=== PATIENT | male | born 1960 | race Caucasian/White ===

== ENCOUNTER 2016-09-15 10:28 | Emergency (ER) | payer SELFPAY ==
[~2016-09-15] VITALS: Ht 180.3 cm; Wt 100.0 kg
[2016-09-15 10:31] VITALS: BP 115/69; PULSE 91; RESP 15; TEMP 97.8; O2SAT 95
[2016-09-15 10:49] VITALS: O2SAT 96
--- NOTE | 2016-09-15 11:12 | PD ---
HPI Chief Complaint: Edema Time Seen by Provider: 11:12 Travel History International Travel<30 days: No Contact w/Intl Traveler<30days: No Traveled to known affect area: No History of Present Illness HPI 56-year-old male presents the emergency department with 2 day history of increasing right-sided leg discomfort and swelling from the hip down. 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 Patient denies any specific recent injury. Patient states he noticed some edema in the right lower leg starting approximately 2 months ago but didn't think much of it until 2 days ago and got considerably worse. Patient denies fever, chills, numbness, tingling, or weakness in the right lower leg. He denies back pain. His states his pain is mainly worse in the hip and thigh, but not so much below the knee. Patient states his pain is 3/10 while he is sitting, and at worst it was a 5/10 last evening. Patient states it seems to improve with NSAIDs and ambulation. Patient has no history of recent long areas of travel. He states no history of similar symptoms in the past. He has no known drug allergies. PFSH Past Medical History Medical History: Denies Significant Hx Influenza Vaccination: No Social History Alcohol Use: Yes (daily beers) Tobacco Use: Yes Substance Use: No Allergies-Medications (Allergen,Severity, Reaction): Coded Allergies: No Known Allergies (Unverified , 09/15/16) Reported Meds & Prescriptions Reported Meds & Active Scripts Active Tramadol (Tramadol HCl) 50 Mg Tab 50 Mg PO Q6H PRN Xarelto (Rivaroxaban) 20 Mg Tab 20 Mg PO DAILY Xarelto Starter Pack 15 & 20 mg (Rivaroxaban) 1 Tab Tab 1 Tab PO DIRECTED Review of Systems Except as stated in HPI: all other systems reviewed are Neg General / Constitutional: No: Fever Eyes: No: Visual changes HENT: No: Headaches Cardiovascular: No: Chest Pain or Discomfort Respiratory: No: Shortness of Breath Gastrointestinal: No: Abdominal Pain Genitourinary: No: Dysuria Musculoskeletal: No: Pain Skin: No Rash Neurologic: No: Weakness Psychiatric: No: Depression Endocrine: No: Polydipsia Hematologic/Lymphatic: No: Easy Bruising Physical Exam Narrative GENERAL: Patient appears in no acute distress. SKIN: Warm and dry. Patient has 2+ nonpitting edema in the right lower extremity from the foot up to the knee. The right thigh does not appear edematous, the patient complains of tenderness with palpation along the anterior thigh into the anterior lateral hip. There are no signs of cellulitis , or skin breakdown. Capillary refill is brisk in the right lower leg. Toes are warm. HEAD: Atraumatic. Normocephalic. EYES: Pupils equal and round. No scleral icterus. No injection or drainage. ENT: No nasal bleeding or discharge. Mucous membranes pink and moist. Pharynx is clear. Airway is patent. NECK: Trachea midline. No JVD. Supple and nontender. CARDIOVASCULAR: Regular rate and rhythm. No murmurs gallops or rubs. Patient does have pedal pulse via Doppler in the right foot. RESPIRATORY: No accessory muscle use. Clear to auscultation. Breath sounds equal bilaterally. GASTROINTESTINAL: Abdomen soft, non-tender, nondistended. Hepatic and splenic margins not palpable. MUSCULOSKELETAL: Extremities without clubbing, cyanosis, or edema. No obvious deformities. Patient has negative Homans sign on the right. No straight leg raise pain bilaterally. NEUROLOGICAL: Awake and alert. No obvious cranial nerve deficits. Motor grossly within normal limits. Five out of 5 muscle strength in the arms and legs. Normal speech. PSYCHIATRIC: Appropriate mood and affect; insight and judgment normal. Data Data Last Documented VS Vital Signs Date Time Temp Pulse Resp B/P Pulse Ox O2 Delivery O2 Flow Rate FiO2 09/15/16 12:43 18 99 Room Air 09/15/16 10:31 97.8 91 115/69 Orders Complete Blood Count With Diff (09/15/16 11:25) Comprehensive Metabolic Panel (09/15/16 11:25) Prothrombin Time / Inr (Pt) (09/15/16 11:25) Act Partial Throm Time (Ptt) (09/15/16 11:25) Iv Access Insert/Monitor (09/15/16 11:25) Ecg Monitoring (09/15/16 11:25) Oximetry (09/15/16 11:25) Sodium Chloride 0.9% Flush (Ns Flush) (09/15/16 11:30) Electrocardiogram (09/15/16 11:25) Chest, Single Ap (09/15/16 11:25) Us Leg Venous Doppler (09/15/16 11:25) Acetamin-Hydrocod 325-5 Mg ([place] 5-325 (09/15/16 14:00) Labs Laboratory Tests Test 09/15/16 12:45 White Blood Count 8.2 TH/MM3 Red Blood Count 4.65 MIL/MM3 Hemoglobin 14.7 GM/DL Hematocrit 43.6 % Mean Corpuscular Volume 93.8 FL Mean Corpuscular Hemoglobin 31.6 PG Mean Corpuscular Hemoglobin 33.7 % Concent Red Cell Distribution Width 13.7 % Platelet Count 99 TH/MM3 Mean Platelet Volume 9.6 FL Neutrophils (%) (Auto) 71.2 % Lymphocytes (%) (Auto) 18.7 % Monocytes (%) (Auto) 7.1 % Eosinophils (%) (Auto) 2.3 % Basophils (%) (Auto) 0.7 % Neutrophils # (Auto) 5.8 TH/MM3 Lymphocytes # (Auto) 1.5 TH/MM3 Monocytes # (Auto) 0.6 TH/MM3 Eosinophils # (Auto) 0.2 TH/MM3 Basophils # (Auto) 0.1 TH/MM3 CBC Comment AUTO DIFF Differential Comment AUTO DIFF CONFIRMED Platelet Estimate LOW Platelet Morphology Comment NORMAL Prothrombin Time 10.4 SEC Prothromb Time International 0.9 RATIO Ratio Activated Partial 27.8 SEC Thromboplast Time Sodium Level 138 MEQ/L Potassium Level 3.8 MEQ/L Chloride Level 102 MEQ/L Carbon Dioxide Level 26.7 MEQ/L Anion Gap 9 MEQ/L Blood Urea Nitrogen 9 MG/DL Creatinine 0.65 MG/DL Estimat Glomerular Filtration 126 ML/MIN Rate Random Glucose 94 MG/DL Calcium Level 9.1 MG/DL Total Bilirubin 0.6 MG/DL Aspartate Amino Transf 64 U/L (AST/SGOT) Alanine Aminotransferase 75 U/L (ALT/SGPT) Alkaline Phosphatase 65 U/L Total Protein 7.7 GM/DL Albumin 3.5 GM/DL [facility] Medical Decision Making Medical Screen Exam Complete: Yes Emergency Medical Condition: Yes Differential Diagnosis Right sided pedal edema. DVT. Cellulitis. Abscess. Narrative Course Patient is felt to be medically stable at time of exam. Chest x-ray and EKG are ordered. Labs ordered including CBC, CMP, PT PTT and INR. Ultrasound of the right lower leg is ordered. Ultrasound shows large DVT to the right lower extremity. EKG shows sinus rhythm with frequent ventricular premature complexes. This was reviewed with Dr. Hyman. Chest x-ray is unremarkable. Patient will be discharged home with a prescription for Xeralto. Patient is also given tramadol 50 mg one every 6 hours when necessary pain #40. Patient is to follow-up with a local primary care physician. Information regarding DVT is given to the patient. Patient can always return to emergency Department with worsening symptoms, chest pain, shortness of breath, or other symptoms as discussed. Diagnosis Primary Impression: Deep vein thrombosis (DVT) of right lower extremity Qualified Code: I82.401 - Acute deep vein thrombosis (DVT) of right lower extremity, unspecified vein Referrals: [facility] Patient Instructions: Deep Venous Thrombosis (DC), General Instructions Additional Instructions: Patient will be discharged home with a prescription for Xeralto. Patient is also given tramadol 50 mg one every 6 hours when necessary pain #40. Patient is to follow-up with a local primary care physician. Information regarding DVT is given to the patient. Patient can always return to emergency Department with worsening symptoms, chest pain, shortness of breath, or other symptoms as discussed. Med/Other Pt SpecificInfo: Prescription(s) given Scripts Tramadol 50 Mg Tab50 Mg PO Q6H PRN (PAIN) #40 TAB Prov:Regan Ramírez MD 09/15/16 Rivaroxaban (Xarelto)20 Mg Tab20 Mg PO DAILY #30 TAB Ref 5 Prov:Regan Ramírez MD 09/15/16 Rivaroxaban Starter Pack 15 & 20 mg (Xarelto Starter Pack 15 & 20 mg)1 Tab Tab1 Tab PO DIRECTED #1 PACK Ref 0 Prov:Regan Ramírez MD 09/15/16 Disposition: 01 DISCHARGE HOME Condition: Stable Jordan Zhang Sep 15, 2016 11:12
[2016-09-15] MEDS ORDERED: SODIUM CHLORIDE 0.9% FLUSH 5 ML FLUSH IVF PRN (11:30)
--- NOTE | 2016-09-15 12:09 | RADRPT ---
EXAM DATE/TIME: 09/15/2016 11:36 [facility] COMPARISON: No previous studies available for comparison. INDICATIONS : Right leg swelling and pain. MEDICAL HISTORY : Right leg swelling. SURGICAL HISTORY : Orthopedic surgery, wrist. ENCOUNTER: Initial ACUITY: 2 day PAIN SCORE: 4/10 LOCATION: Right leg. TECHNIQUE: Venous ultrasound of the leg was performed from the inguinal ligament to the proximal calf. Real-time, color Doppler and spectral tracing, compression and augmentation techniques were us ed. FINDINGS: Extensive thrombus is seen from below the knee into the right common femoral vein. Thrombus is seen just below the inguinal ligament. CONCLUSION: Venous Doppler positive for deep venous thrombosis. Travis Gilbert MD FACR on September 15, 2016 at 12:06 Board Certified Radiologist. This report was verified electronically.
[2016-09-15 12:43] VITALS: RESP 18; O2SAT 99
--- NOTE | 2016-09-15 12:56 | RADRPT ---
EXAM DATE/TIME: 09/15/2016 12:08 [facility] COMPARISON: No previous studies available for comparison. INDICATIONS : Cough, right leg edema MEDICAL HISTORY : None. SURGICAL HISTORY : None. ENCOUNTER: Initial ACUITY: 1 day PAIN SCORE: 0/10 LOCATION: Bilateral chest FINDINGS: A single view of the chest demonstrates the lungs to be symmetrically aerated without evidence of mas s, infiltrate or effusion. The cardiomediastinal contours are unremarkable. Osseous structures are intact. CONCLUSION: No acute disease. Travis Gilbert MD FACR on September 15, 2016 at 12:54 Board Certified Radiologist. This report was verified electronically.
[2016-09-15 13:02] LABS: AUTOMATED NEUTROPHIL # 5.8 TH/MM3 (1.8-7.7); BASOPHIL # 0.1 TH/MM3 (0-0.2); BASOPHIL % 0.7 % (0.0-2.0); EOSINOPHIL # 0.2 TH/MM3 (0-0.4); EOSINOPHIL % 2.3 % (0.0-4.0); HEMATOCRIT 43.6 % (39.0-51.0); LYMPH % 18.7 % (9.0-44.0); LYMPHOCYTE # 1.5 TH/MM3 (1.0-4.8); MEAN CELL VOLUME 93.8 FL (80.0-100.0); MEAN CORPUSCULAR HEMOGLOBIN 31.6 PG (27.0-34.0); MEAN CORPUSCULAR HGB CONC 33.7 % (32.0-36.0); MONO % 7.1 % (0.0-8.0); NEUT % 71.2 % (16.0-70.0); PLATELET COUNT 99 TH/MM3 (150-450); RED BLOOD COUNT 4.65 MIL/MM3 (4.50-5.90); RED CELL DISTRIBUTION WIDTH 13.7 % (11.6-17.2); WHITE BLOOD COUNT 8.2 TH/MM3 (4.0-11.0)
[2016-09-15 13:10] LABS: APTT (PATIENT) 27.8 SEC (24.3-30.1); INTERNATIONAL NORMALIZED RATIO 0.9 RATIO; PROTHROMBIN TIME - PATIENT 10.4 SEC (9.8-11.6)
[2016-09-15 13:21] LABS: HEMO FLAGS AUTO DIFF
[2016-09-15] MEDS ORDERED: XARE20TA PO (13:22)
[2016-09-15] MEDS ORDERED: RIVA1TAB PO (13:22)
[2016-09-15 13:29] LABS: ANION GAP 9 MEQ/L (5-15); AST (GOT) 64 U/L (15-37); BICARBONATE 26.7 MEQ/L (21.0-32.0); BLOOD UREA NITROGEN 9 MG/DL (7-18); CHLORIDE 102 MEQ/L (98-107); GLOMERULAR FILTRATION RATE 126 ML/MIN (>89); POTASSIUM 3.8 MEQ/L (3.5-5.1); SODIUM (NA) 138 MEQ/L (136-145)
[2016-09-15 13:32] LABS: ALKALINE PHOSPHATASE 65 U/L (45-117); ALT (GPT) 75 U/L (12-78); TOTAL BILIRUBIN ADULT 0.6 MG/DL (0.2-1.0)
[2016-09-15] MEDS ORDERED: TRAM50TA PO (13:47)
[2016-09-15 13:48] LABS: PLATELET ESTIMATE SMEAR LOW (NORMAL); PLATELET MORPHOLOGY NORMAL (NORMAL); SCAN/DIFF AUTO DIFF CONFIRMED
[2016-09-15] MEDS ORDERED: ACETAMINOPHEN/HYDROcodone 325 MG/5 MG TAB PO ONE (14:00)
[2016-09-15 14:24] VITALS: BP 133/78; PULSE 94; RESP 18; O2SAT 99
--- NOTE | 2016-09-15 22:15 | EKG ---
Date Performed: 09/15/2016 Time Performed: 12:56:14 PTAGE: 56 years EKG: Sinus rhythm WITH FREQUENT VENTRICULAR PREMATURE COMPLEXES ABNORMAL RHYTHM ECG NO PREVIOUS TRACING DOCTOR: Momo Dunbar Interpretating Date/Time 09/15/2016 22:13:37
== END 2016-09-15 15:32 | disposition home or self-care (01) ==
LOC: NEPC 10:28
DX: I82.401 Acute embolism and thrombosis of unspecified deep veins of right lower extremity (principal); R94.31 Abnormal electrocardiogram [ECG] [EKG]; Z72.0 Tobacco use
CPT/HCPCS: 71010; 80053; 85025; 85610; 85730; 93005; 93971